=== PATIENT | female | born 1995 | race Two or more races ===

== ENCOUNTER 2020-11-04 18:09 | Emergency (ER) | payer MEDICAID, OTHER ==
[~2020-11-04] VITALS: Ht 170.2 cm; Wt 81.2 kg
[2020-11-04 20:40] LABS: Urine Bacteria FEW /hpf (None Seen); Urine Blood 2+ /uL (Negative); Urine Mucus FEW (None Seen); Urine Specific Gravity 1.034 (1.001-1.035); Urine WBC 29 /hpf (0 - 5)
[2020-11-04 22:01] LABS: Basophils # (auto) 0 10 ^3/uL (0-0.2); Basophils % (auto) 0.6 % (0.0-2.0); Eosinophils # (auto) 0.1 10 ^3/uL (0-0.8); Hematocrit 35.8 % (36.0-46.0); Hemoglobin 12.4 g/dL (12.2-16.2); Lymphocytes # (auto) 1.6 10 ^3/uL (0.4-5.4); Lymphocytes % (auto) 27.9 % (10.0-50.0); Mean Corpuscular Hemoglobin 29.1 pg (28.0-32.0); Mean Corpuscular Hgb Conc. 34.6 g/dL (32.0-36.0); Mean Corpuscular Volume 84.3 fL (80.0-100.0); Monocytes # (auto) 0.5 10 ^3/uL (0-1.3); Monocytes % (auto) 9.4 % (0.0-12.0); Neutrophils # (auto) 3.4 10 ^3/uL (1.6-8.6); Neutrophils % (auto) 61.1 % (37.0-80.0); Nucleated Red Blood Cells % 0.1 %; Platelet Count (auto) 348 10^3/uL (140-450); Red Blood Cells 4.24 10^6/uL (4.0-5.20); Red Cell Distribution Width 18.2 % (11.8-14.3); White Blood Cell 5.6 10^3/uL (4.4-10.8)
[2020-11-04 22:21] LABS: Albumin 3.6 g/dL (3.4-5.0)
[2020-11-04 22:26] LABS: BUN/Creatinine Ratio 12.1; Bilirubin, Total 2.6 mg/dL (0.2-1.0); Total Protein 7.9 g/dL (6.4-8.2)
[2020-11-04] MEDS ORDERED: cefTRIAXone SOD 1,000 MG VL IM ONE (22:30)
[2020-11-05 01:00] VITALS: BP 128/86
== END 2020-11-05 02:00 | disposition short-term general hospital (02) ==
LOC: ER 18:10
DX: K80.20 Calculus of gallbladder without cholecystitis without obstruction (principal); K76.0 Fatty (change of) liver, not elsewhere classified; N12 Tubulo-interstitial nephritis, not specified as acute or chronic; Z20.822 Contact with and (suspected) exposure to COVID-19
CPT/HCPCS: 36415; 76705; 80053; 81001; 82150; 83690; 85025; 87426; 96372; 99285; J0696